=== PATIENT | female | born 1985 | race Caucasian/White ===

== ENCOUNTER 2019-04-07 13:51 | Emergency (ER) | payer OTHER ==
[2019-04-07] MEDS: LIDOCAINE 1% (MPF) 5 ML VIAL INFIL (16:38)
== END 2019-04-07 17:21 | disposition home or self-care (01) ==
LOC: FTE 13:51
DX: N61.1 Abscess of the breast and nipple (principal); Z87.891 Personal history of nicotine dependence
CPT/HCPCS: 10060; 99283-25

== ENCOUNTER 2019-04-09 06:36 | Emergency (ER) | payer OTHER | END 2019-04-09 07:11 | disposition home or self-care (01) | LOC: E/R 06:36 | DX: Z48.01 Encounter for change or removal of surgical wound dressing (principal); Z87.891 Personal history of nicotine dependence | CPT/HCPCS: 99281; Z7502 ==